=== PATIENT | female | born 1990 | race Caucasian/White ===

== ENCOUNTER 2024-05-20 11:45 | Emergency (ER) | payer BC, SELFPAY ==
[2024-05-20 11:51] VITALS: BP 110/74; PULSE 66; RESP 16; TEMP 36.6; O2SAT 99; BMI 27.3
--- NOTE | 2024-05-20 12:22 | CRLHL7_ITS ---
For Patients: As a result of the Century Cures Act, medical imaging exams and procedure reports are released immediately into your electronic medical record. You may view this report before your referring provider. If you have questions, please contact your health care provider. INDICATION: Heavy uterine bleeding COMPARISON: None. TECHNIQUE: Sonographic evaluation of the pelvis was performed utilizing velazco-scale and color Doppler imaging techniques. Transabdominal images were obtained. Transvaginal images were obtained to improve assessment of the adnexa and endometrium. FINDINGS: The uterus is anteverted/retroflexed and measures 9 x 4 x 4.5 centimeters. The endometrial stripe measures 11 mm. No uterine mass lesions are sonographically detected. The right ovary measures 3 x 4.4 x 3 cm with a right ovarian volume of 17.1 milliliters. Multiple right small ovarian follicles with a peripheral predominance. Vascular flow is detected in the right ovary. No suspicious right ovarian mass is identified. The left ovary measures 3.6 x 2.4 x 2.5 cm with a left ovarian volume of 11.6 milliliters. Multiple small left ovarian follicles with a peripheral predominance. Vascular flow is detected in the left ovary. No suspicious left ovarian mass is identified. Trace pelvic free fluid. IMPRESSION: 1. No acute sonographic findings. 2. Morphologic findings compatible with polycystic ovarian syndrome in the appropriate clinical setting. Dictated by Leodan Saba MD @ 05/20/2024 1:30:53 PM (Electronically Signed)
[2024-05-20 12:47] LABS: Basophils Absolute Auto 0.03 K/uL (0.00-0.30); Basophils Percent Auto 0.4 % (0.0-3.0); Eosinophils Absolute Auto 0.03 K/uL (0.00-0.50); Eosinophils Percent Auto 0.4 % (0.0-7.0); Hematocrit 44.4 % (33.0-51.0); Hemoglobin* 14.9 gm/dL (12.0-16.0); Immature Granulocytes Abs Auto 0.04 K/uL (0.00-0.30); Immature Granulocytes Pct Auto 0.5 %; Lymphocytes Absolute Auto 1.99 K/uL (0.90-2.90); Mean Corpuscular HGB Conc 34 gm/dL (32-36); Mean Corpuscular Hemoglobin 31 pg (26-34); Mean Corpuscular Volume 91 fL (80-100); Neutrophils Percent Auto 66.7 % (42.0-72.0); Platelet Count* 286 K/uL (140-440); RDW Coefficient of Variation % 12.6 % (11.5-15.5); Red Blood Count 4.89 m/uL (4.00-5.20); White Blood Count* 7.95 K/uL (4.50-11.00)
--- NOTE | 2024-05-20 12:50 | ED.FEMALEGU ---
HPI - Female Genitourinary General Date Seen: 05/20/24 Chief complaint: Vaginal Bleeding Stated complaint: heavy menstrual bleeding Time Seen by Provider: 05/20/24 11:52 Source: patient Mode of arrival: ambulatory Limitations: no limitations History of Present Illness HPI Narrative: Patient is a 34-year-old female presenting to the emergency department for abnormal uterine bleeding. She states she started her period yesterday and then this morning it has been getting worse. She was initially going through her 1 of her regular tampons every 10-20 minutes and is now gone up to the largest tampon still going through with every 30 minutes to an hour. She states the bleeding is notice much more when she stands up. She has but through her pains at work. Has not had any lightheadedness or dizziness. States she has heavy bleeding this several years ago when she was 15 but resolved on its own. She does have PCOS and has a history of an irregular. Until she had her sign a couple years ago now she states she has a. Roughly every 2 months. Do not have a period last month. Cannot say for certain she isn't currently . Is having some mild pelvic discomfort and cramping. Denies chest pain, shortness of breath, abdominal pain, lightheadedness, dizziness, weakness, numbness, fevers, chills. No other concerns noted at this time. Related Data Previous Rx's ?Medication ?Instructions ?Recorded norgestimate 0.25 mg-ethinyl See Rx Instructions .Route 05/20/24 estradiol 35 mcg tablet (Sprintec .COMPLEX #84 tabs (28)) Allergies Allergy/AdvReac Type Severity Reaction Status Date / Time No Known Drug Allergies Allergy Verified 05/20/24 11:56 Review of Systems Status of ROS: Reports: 10 or more systems reviewed and unremarkable except as noted in History and below Exam Narrative: Exam Narrative: Const: Well-nourished, Well-developed, in mild distress Eyes: PERRL, no conjunctival injection, and symmetrical lids HENT: Atraumatic external nose and ears. Moist mucous membranes. Neck: Symmetric, trachea midline, No thyromegaly. CVS: RRR, No murmurs or gallops. Peripheral pulses 2+ and equal in all extremities RESP: Unlabored respiratory effort. Clear to auscultation bilaterally. GI: Nontender/Nondistended, No rebound or guarding. MSK:Extremities w/o deformity, Normal Active ROM Skin: Warm, Dry. No rashes or lesions. Neuro: Normal Muscle tone, No focal neurological deficits. Psych: Awake, Alert, & Oriented x3. Appropriate mood and affect. Const: Vital Signs, click to edit/add: Vital Signs - 24 hr 05/20/24 11:51 Temperature 98 F Pulse Rate [Pulse Oximeter] 66 Respiratory Rate 16 Blood Pressure [Ri ght Upper Arm] 110/74 Pulse Oximetry 99 Oxygen Delivery Me thod Room Air Course Vital Signs Vital signs: Initial Vital Signs Temperature 98 F 05/20/24 11:51 Temperature Source Temporal Artery Scan 05/20/24 11:51 Pulse Rate 66 05/20/24 11:51 Respiratory Rate 16 05/20/24 11:51 Blood Pressure 110/74 05/20/24 11:51 Blood Pressure Mean 86 05/20/24 11:51 Blood Pressure Position Sitting 05/20/24 11:51 Pulse Oximetry 99 05/20/24 11:51 Oxygen Delivery Method Room Air 05/20/24 11:51 Vital Signs Temperature 98 F 05/20/24 11:51 Pulse Rate 66 05/20/24 11:51 Respiratory Rate 16 05/20/24 11:51 Blood Pressure 110/74 05/20/24 11:51 Pulse Oximetry 99 05/20/24 11:51 Oxygen Delivery Method Room Air 05/20/24 11:51 Temperature 98 F 05/20/24 11:51 Pulse Rate 66 05/20/24 11:51 Respiratory Rate 16 05/20/24 11:51 Blood Pressure 110/74 05/20/24 11:51 Pulse Oximetry 99 05/20/24 11:51 Oxygen Delivery Method Room Air 05/20/24 11:51 MDM - Female Genitourinary MDM Narrative Medical decision making narrative: Patient is a 34-year-old female presenting to emergency department for abnormal uterine bleeding. Will order an ultrasound to better evaluate this bleeding. Will check a BMP and CBC to make sure electrolytes and hemoglobin within normal limits. Will also check a test. Lab work shows no concerning abnormalities. Ultrasound shows no acute concerning abnormalities. I did do pelvic exam shows a moderate amount in the vaginal vault but otherwise normal external genitalia. She is stable and is doing well. I did speak to her OB providers out of the OB Gyne specialist and [place]. I spoke to the on-call provider, Dr. Olivera, who recommends Sprintec control to help with her bleeding and they will follow up with her outpatient. This was ordered and patient is agreeable to this plan. I was told that the patient calf 3 pills for the 1st 3 days followed by 2 pills for 3 days and then take 1 pill daily until finished. Lab Data Labs: Lab Results 05/20/24 Range/Units 12:33 WBC 7.95 (4.50-11.00) K/uL RBC 4.89 (4.00-5.20) m/uL Hgb 14.9 (12.0-16.0) gm/dL Hct 44.4 (33.0-51.0) % MCV 91 (80-100) fL MCH 31 (26-34) pg MCHC 34 (32-36) gm/dL RDW Coeff of Judi 12.6 (11.5-15.5) % Plt Count 286 (140-440) K/uL Neut % (Auto) 66.7 (42.0-72.0) % Lymph % (Auto) 25.0 (20-44) % [place] % (Auto) 7.0 (0.0-11.0) % Eos % (Auto) 0.4 (0.0-7.0) % Baso % (Auto) 0.4 (0.0-3.0) % Neut # (Auto) 5.30 (1.7-7.0) K/uL Lymph # (Auto) 1.99 (0.90-2.90) K/uL [place] # (Auto) 0.60 (0.00-0.90) K/UL Eos # (Auto) 0.03 (0.00-0.50) K/uL Baso # (Auto) 0.03 (0.00-0.30) K/uL Abs Immat Gran (auto) 0.04 (0.00-0.30) K/uL Imm/Tot Granulo (auto) 0.5 % Sodium 140 (135-149) mmol/L Potassium 4.3 (3.6-5.1) mmol/L Chloride 105 (96-114) mmol/L Carbon Dioxide 26 (20-32) mmol/L Anion Gap 9 (7-15) mEq/L BUN 10 (5-24) mg/dL Creatinine 0.6 (0.5-1.5) mg/dL Estimated Creat Clear 102.52 Estimated GFR 119 ml/min Glucose 93 (60-115) mg/dL Calcium 9.2 (8.4-10.6) mg/dL HCG, Qual Negative (Negative) Imaging Data Pelvic ultrasound: Attestation: I have reviewed the pertinent imaging results. Radiologist's impression: 1. No acute sonographic findings. 2. Morphologic findings compatible with polycystic ovarian syndrome in the appropriate clinical setting. Dictated by Leodan Saba MD @ 05/20/2024 1:30:53 PM Discharge Plan Discharge Clinical Impression: Dysfunctional uterine bleeding Patient Disposition: Home, Self-Care Condition: Stable Instructions: Abnormal (Dysfunctional) Uterine Bleeding (ED) Additional Instructions: Take the medication prescribed as directed. Start by taking 3 pills a day for 3 days followed by 2 pills a day for 3 days and then take 1 pill daily. You should follow-up with the OB Gyne specialist when you are able to. They recommend repeat ultrasound. Prescriptions: New norgestimate-ethinyl estradiol [Sprintec (28)] 0.25-35 mg-mcg tablet See Rx Instructions .ROUTE .COMPLEX Qty: 84 0RF Rx Instructions: Take 3 pills daily for 3 days followed by 2 pills daily for 3 days followed by 1 pill daily until empty Follow Up/Referrals: Provider,Not a Local [Primary Care Provider] - Stand Alone Forms: [employer] Info Instructions
--- OUTSIDE RECORDS SUMMARY | 2024-05-20 12:56 | XMS_ITS | Encounter Summary ---
Author Organization [facility] Address [address] [place] [id number] Care Team Providers Care Golf Technician Name Role Phone Chrystal Main PA-C Primary Care Pro vider Chrystal Main PA-C Unavailable Esther Zambrano PA-C Primary Care Provider [phone] Esther Zambrano PA-C Unavailable [facility] Unavail able [facility] Primary Care Provider Encounter Details Date Type Department Care Team (Late st Contact Info) Description 01/12/2016 MyC Medical Advice [facility] [address] [place] [address] Chrystal Main PA-C [facility] [address] [facility] [place] [address] Social History Tobacco Use Types Packs/Day Years Used Date Smoking Tobacco: Former Cigarettes 0.1 10.2 S tarted: 02/21/2014 Smokeless Tobacco: Never Comments:1 pack q2wks Alcohol Use Standard Drinks/Week Comments Yes 0.8 (1 standard drink = 0.6 oz p ure alcohol) Comments No Sex and Gender Information Value Date Recorded Sex Assigned at Female 04/19/2022 3:08 PM PRODUCT DEVELOPMENT CARPENTER Legal Sex Female 2:58 AM PRODUCT DEVELOPMENT CARPENTER Gender Identity Female 04/19/2022 3:08 PM PRODUCT DEVELOPMENT CARPENTER Sexual Orientation Straight 04/19/2022 3: 08 PM PRODUCT DEVELOPMENT CARPENTER 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 Not on file Not on fi le documented as of this encounter Plan of Treatment Not on file documented as of this encounter Visit Diagnoses Not on filedocumented in this encounter Care Teams Golf Technician Relationship Specialty Start Date End Date Chrystal Main PA-C PCP - General Family Practice 01/08/16 03/01/23 Esther Zambrano PA-C [facility] [address] [facility] [place] [address] PCP - General Family Medicine 03/02/23 11/05/23 [facility] [address] [place] [address] PCP - General 11/06/23 Chrystal Main PA-C [facility] [address] [facility] [place] [address] Assigned PCP 03/11/17 03/06/20 Esther Zambrano PA-C [address] [facility] [address] [place] [address] Assigned PCP 03/15/23 01/11/24 [facility] [address] [place] [address] Assigned PCP 01/12/24 documented as of this encounter
--- OUTSIDE RECORDS SUMMARY | 2024-05-20 12:56 | XMS_ITS | Clinical Summary ---
Author Organization [facility] Address [address] [place] [address] Care Team Providers Care Machine Pecan Picker Name Role Phone [facility] Unavail able [facility] Primary Care Provider Allergies No known active allergies Medications ibuprofen (ADVIL/MOTRIN) 800 MG tabletIndication s:Indication for care or intervention in labor or delivery Take 1 tablet (800 mg) by mouth every 6 hours as needed for other (cramping) 15 tablet 3 Active Additional Information Patient not taking.Reported on 03/02/2023 triamcinolone (KENALOG) 0.1 % external creamIndications :Labial irritation Apply topically daily To labia for irritation 45 g 1 4 Active nystatin (MYCOSTATIN) 153271 UNIT/GM external creamIndications :Intertrigo,Labi al irritation Apply topically 2 times daily Under both breasts and to labia for irritation 60 g 1 4 Active Active Problems Problem Noted Date Diagnosed Date PCOS (polycystic ovarian syndrome) 03/02/2023 Indication for care or intervention in labor or delivery 04/20/2022 ACP (advance care planning) 03/02/2017 Overview (03/02/2017): Advance Care Planning 03/02/2017: ACP Review of Chart / Resources Provided: Reviewed chart for advance care plan. Seda Bob has no plan or code status on file. Discussed available resources and provided with information. 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 Maternal Grandfather Depression Maternal Grandmother Depression Mother Uterine Cancer Other dad's grandmothe r Diabetes Paternal Grandfather Diabetes Paternal Grandmother Crohn's Disease Sister 1 Breast Cancer No family hx of Cancer - colorectal No family hx of Hypertension No family hx of Relation Status Comments Cousin Alive Father Alive Maternal Aunt Alive Maternal Grandfather Maternal Grandmother Mother Alive Other Paternal Grandfather Paternal Grandmother Sister 1 Alive Sister 2 Alive Social History Tobacco Use Types Packs/Day Years Used Date Smoking Tobacco: Former Cigarettes 0.1 10.2 S tarted: 02/21/2014 Smokeless Tobacco: Never Tobacco Cessation:Counseling Given: Not Answered Alcohol Use Standard Drinks/Week Comments Not Currently 0 (1 standard drink = 0.6 oz pur e alcohol) rare Social Connection and Isolat ion Panel [NHANES] Answer Date Recorded In a typical week, how many times do you talk on the phone with family, friends, or neighbors? More than three times a week 03/02/2023 How often do you get togethe r with friends or relatives? Twice a week 03/02/2023 How often do you attend chur or restorationist services? 1 to 4 times per year 03/02/2023 Do you belong to any clubs o r organizations such as baptist groups, unions, fraternal or athletic groups, or school groups? No 03/02/2023 How often do you attend meet ings of the clubs or organizations you belong to? Patient declined 03/02/2023 Are you , , di vorced, , never , or living with a partner? 03/02/2023 AUDIT-C Answer Date Recorded Q1: How often do you have a drink containing alcohol? Never 03/02/2023 Q2: How many drinks containi ng alcohol do you have on a typical day when you are drinking? Patient does not drink Q3: How often do you have si x or more drinks on one occasion? Never 03/02/2023 PHQ-2 Answer Date Recorded PHQ-2 Score 0 03/02/2023 [facility] - Occupational Stress Questionnaire Answer Date Recorded Do you feel stress - tense, restless, nervous, or anxious, or unable to sleep at night because your mind is troubled all the time - these days? Not at all 03/02/2023 Exercise Vital Sign Answer Date Recorde d On average, how many days pe r week do you engage in moderate to strenuous exercise (like a brisk walk)? 4 days Minutes of Exercise per Session Not on file 03/02/2023 Driver Depression Scale Answer Date Recorded Last EPDS Total Score Not on file 04/22/2022 The thought of harming myself has occurred to me . Never 04/22/2022 Adolescent Education Answer Date Record ed Getting School Help Needed Not on file 12/03 Food Insecurity Answer Date Recorded Within the past 12 months, d id you worry that your food would run out before you got money to buy more? No 03/02/2023 Within the past 12 months, d id the food you bought just not last and you didn t have money to get more? No 03/02/2023 Housing Stability Answer Date Recorded Do you have housing? (Housin g is defined as stable permanent housing and does not include staying ouside in a car, in a tent, in an abandoned building, in an overnight senior living, or couch-surfing.) Yes 03/02/2023 Are you worried about losing your housing? No 03/02/2023 Financial Resource Strain Answer Date R ecorded Within the past 12 months, h ave you or your family members you live with been unable to get utilities (heat, electricity) when it was really needed? No 03/02/2023 Transportation Needs Answer Date Record ed Within the past 12 months, h as lack of transportation kept you from medical appointments, getting your medicines, non-medical meetings or appointments, work, or from getting things that you need? No 03/02/2023 Interpersonal Safety Answer Date Record ed Do you feel physically and e motionally safe where you currently live? Yes 03/02/2023 Within the past 12 months, h ave you been hit, slapped, kicked or otherwise physically hurt by someone? No 03/02/2023 Within the past 12 months, h ave you been humiliated or emotionally abused in other ways by your partner or ex-partner? No 03/02/2023 Comments No Sex and Gender Information Value Date Recorded Sex Assigned at Female 04/19/2022 3:08 PM TECHNICAL RECRUITER Legal Sex Female 2:58 AM TECHNICAL RECRUITER Gender Identity Female 04/19/2022 3:08 PM TECHNICAL RECRUITER Sexual Orientation Straight 04/19/2022 3: 08 PM TECHNICAL RECRUITER Occupation Industry Job Start Date Job End Date [employer] Not on file Not on file Not on fi le Last Filed Vital Signs Vital Sign Reading Time Taken Comments Blood Pressure 117/70 03/02/2023 1:32 PM TECHNICAL RECRUITER Pulse 55 03/02/2023 1:32 PM TECHNICAL RECRUITER Temperature 36.4 C (97.6 F) 03/02/2023 1:32 PM TECHNICAL RECRUITER Respiratory Rate 12 03/02/2023 1:32 PM TECHNICAL RECRUITER Oxygen Saturation 96% 03/02/2023 1:32 PM TECHNICAL RECRUITER Inhaled Oxygen Concentration - - Weight 66 kg (145 lb 9.6 oz) 03/02/2023 1:32 PM TECHNICAL RECRUITER Height 157.5 cm (5' 2) 03/02/2023 1:32 PM TECHNICAL RECRUITER Body Mass Index 26.63 03/02/2023 1:32 PM TECHNICAL RECRUITER Plan of Treatment Health Maintenance Due Date Last Done Comments ANNUAL REVIEW OF HM ORDERS 1988 HPV IMMUNIZATION (2 - 3-dose series) 06/03/2012 05/06/2012 COVID-19 Vaccine ( season) 2023 INFLUENZA VACCINE (#1) 2023 01/03/2022, 2015 PHQ-2 (once per calendar year) 2024 03/02/2023, 03/02/2017 YEARLY PREVENTIVE VISIT 03/02/2024 03/02/19 24, 03/02/2017, 01/17/2016, Additional history exists DIABETES SCREENING 03/02/2026 03/02/2023, 0 03/02/2023, 01/17/2016 ADVANCE CARE PLANNING 03/02/2028 03/02/2023 HPV TEST 03/02/2028 03/02/2023, 01/17/2016 PAP 03/02/2028 03/02/2023, 02/19, 01/17/2016, Additional history exists DTAP/TDAP/TD IMMUNIZATION (5 - Td or Tdap) 02/02/2032 02/01/2022, 12/19/2011, 08/28/2003, Additional history exists ZOSTER IMMUNIZATION (1 of 2) 01/17/2038 HIV SCREENING Completed 09/05/2021, 02/19, 01/31/2013 HEPATITIS C SCREENING Completed 03/02/2023 HEPATITIS B IMMUNIZATION Discontinued MENINGITIS IMMUNIZATION Aged Out No l onger eligible based on patient's age to complete this topic Pneumococcal Vaccine: Pediatrics (0 to 5 Years) and At-Risk Patients (6 to 49 Years) Aged Out No longer eligible based on patient's age to complete this topic Procedures Procedure Name Priority Date/Time Associated Diagnosis Comments HEMOGLOBIN A1C Routine 03/02/2023 2:08 PM TECHNICAL RECRUITER Routine general medical examination at a health care facility HEPATITIS C SCREEN REFLEX TO HCV RNA QUANT AND GENOTYPE Routine 03/02/2023 2:08 PM TECHNICAL RECRUITER Need for hepatitis C screening test GYNECOLOGIC CYTOLOGY Routine 03/02/2023 1:53 PM TECHNICAL RECRUITER Cervical cancer screening HPV HIGH RISK TYPES DNA CERVICAL Routine 03/02/2023 1:53 PM TECHNICAL RECRUITER Cervical cancer screening HIV 1&2 ANTIBODY (EXTERNAL RESULT) Routine 09/05/2021 12:00 PM CDT from Last 3 Months or Most Recently Relevant to Health Maintenance Results * Hepatitis C Screen Reflex to HCV RNA Quant and Genotype (03/02/2023 2:08 PM TECHNICAL RECRUITER) Pathologist [facility] Hepatitis C Antibody Nonreactive Nonreactive 03/03/2023 9:51 AM TECHNICAL RECRUITER [facility] Comment:A nonreactive screen ing test result does not exclude the possibility of exposure to or infection with HCV. Nonreactive screening test results in individuals with prior exposure to HCV may be due to antibody levels below the limit of detection of this assay or lack of reactivity to the HCV antigens used in this assay. Patients with recent HCV infections (<3 months from time of exposure) may have false- negative HCV antibody results due to the time needed for seroconversion (average of 8 to 9 weeks). Blood BLOOD SPECIMEN / Unknown Venipuncture / Unknown 03/02/2023 2:08 PM TECHNICAL RECRUITER 03/02/2023 2:08 PM TECHNICAL RECRUITER Esther Zambrano PA-C LAB - BLOOD ORDERABLES Fin al Result [facility] [address], [address] [place] [address], [facility] [phone] * Hemoglobin A1c (03/02/2023 2:08 PM TECHNICAL RECRUITER) [facility] Hemoglobin A1C 5.1 0.0 - 5.6 % 03/02/2023 2:14 PM TECHNICAL RECRUITER [facility] Comment: Normal <5.7% Prediabetes 5.7-6.4% Diabetes 6.5% or higher Note: Adopted from ADA consensus guidelines. Blood BLOOD SPECIMEN / Unknown Venipuncture / Unknown 03/02/2023 2:08 PM TECHNICAL RECRUITER 03/02/2023 2:08 PM TECHNICAL RECRUITER Esther Zambrano PA-C LAB - BLOOD ORDERABLES Fin al Result [facility] [address] [place] [address] (no room number, 1st floor of clinic) [place] [address], [facility] [phone] * Pap Screen with HPV - recommended age 30 - 65 years (03/02/2023 1:53 PM TECHNICAL RECRUITER) Interpretation Negative for Intraepithelial Lesion or Malignancy (NILM) 03/07/2023 9:24 AM TECHNICAL RECRUITER [facility] Comment Papanicolaou Test Limitations: Cervical cytology is a screening test with limited sensitivity, and regular screening is critical for cancer prevention. Pap tests are primarily effective for the diagnosis/prevent ion of squamous cell carcinoma, not adenocarcinoma or other cancers. 03/07/2023 9:24 AM TECHNICAL RECRUITER [facility] Specimen Adequacy Satisfactory for evaluation, endocervical/soliman sformation zone component absent 03/07/2023 9:24 AM TECHNICAL RECRUITER [facility] Clinical Information none 03/07/2023 9:24 AM TECHNICAL RECRUITER [facility] Reflex Testing Yes regardless of result 03/07/2023 9:24 AM TECHNICAL RECRUITER [facility] Previous Abnormal? No 03/07/2023 9:24 AM TECHNICAL RECRUITER [facility] Performing Labs The technical component of this testing was completed at [facility] 03/07/2023 9:24 AM TECHNICAL RECRUITER [facility] Brushing CERVIX UTERI STRUCTURE / Unknown 03/02/2023 1:53 PM TECHNICAL RECRUITER 03/02/2023 2:28 PM TECHNICAL RECRUITER us Esther VILLAGOMEZ Final Resu lt [facility] Specialty Lab [address] [facility] [address] [facility] [place] [address], [facility] [phone] * HPV High Risk Types DNA Cervical (03/02/2023 1:53 PM TECHNICAL RECRUITER) Other HR HPV Negative Negative 03/09/2023 7:13 AM TECHNICAL RECRUITER [facility] HPV16 DNA Negative Negative 03/09/2023 7:13 AM TECHNICAL RECRUITER [facility] HPV18 DNA Negative Negative 03/09/2023 7:13 AM TECHNICAL RECRUITER [facility] FINAL DIAGNOSIS This patient's sample is negative for HPV DNA. This test was developed and its performance characteristics determined by the [facility]. It has not been cleared or approved by the FDA. The laboratory is regulated under CLIA as qualified to perform high-complexity testing. This test is used for clinical purposes. It should not be regarded as investigational or for research. METHODOLOGY: The Cristina Kiera [id number] system uses automated extraction, simultaneous amplification of HPV (L1 region) and beta-globin, followed by real time detection of fluorescent labeled HPV and beta globin using specific oligonucleotide probes. The test specifically identifies types HPV 16 DNA and HPV 18 DNA while concurrently detecting the rest of the high risk types (31, 33, 35, 39, 45, 51, 52, 56, 58, 59, 66 or 68). COMMENTS: This test is not intended for use as a screening device for woman under age 30 with normal cervical cytology. Results should be correlated with cytologic and histologic findings. Close clinical followup is recommended. 03/09/2023 7:13 AM TECHNICAL RECRUITER [facility] Brushing CERVIX UTERI STRUCTURE / Unknown Non-blood Collection / Unknown 03/02/2023 1:53 PM TECHNICAL RECRUITER 03/08/2023 8:24 AM TECHNICAL RECRUITER Esther Zambrano PA-C LAB - BLOOD ORDERABLES Fin al Result [facility] [address] [facility], [address] [id number] [phone] * HIV-1 Antibody (External Result) (09/05/2021 12:00 PM CDT) HIV 1&2 Antibody (External) Negative Nonreactive EXTERNAL LAB 09/05/2021 12:0 0 PM CDT us Patient Reported LAB - HIM EXTERNAL RESULT Final Result EXTERNAL LAB External Lab from Last 3 Months or Most Recently Relevant to Health Maintenance [place] [address] [place] [address] [facility] [employer] Advance Directives For more information, please contact: [phone] * Full Code (Latest Code Status on File) Date Activated Date Inactivated Comments 04/21/2022 5:00 AM 04/23/2022 6:42 PM All basic and advanced life-sustaining interventions are performed as appropriate Question Answer Comments Code status determined by: Discussion with nnamdie nt/ legal decision maker * Full Code Date Activated Date Inactivated Comments 04/20/2022 12:34 PM 04/21/2022 4:12 AM All basic and advanced life-sustaining interventions are performed as appropriate Question Answer Comments Code status determined by: Discussion with finn nt/ legal decision maker Care Teams Machine Pecan Picker Relationship Specialty Start Date End Date [facility] [id number] [place] [id number] PCP - General 11/06/23 [facility] [address] [place] [address] Assigned PCP 01/12/24
[2024-05-20 12:58] LABS: Chloride* 105 mmol/L (96-114); Potassium* 4.3 mmol/L (3.6-5.1); Sodium* 140 mmol/L (135-149)
[2024-05-20 13:01] LABS: Anion Gap 9 mEq/L (7-15); Blood Urea Nitrogen* 10 mg/dL (5-24); Calcium* 9.2 mg/dL (8.4-10.6); Carbon Dioxide* 26 mmol/L (20-32); Creatinine* 0.6 mg/dL (0.5-1.5); Est. Creatinine Clearance* 102.52; Estimated Glomerular Filt Rate 119 ml/min; Glucose* 93 mg/dL (60-115)
[2024-05-20 13:10] LABS: Slide Review Reflex No
[2024-05-20 13:12] LABS: HCG Qualitative Serum* Negative (Negative)
== END 2024-05-20 14:18 | disposition home or self-care (01) ==
PROVIDERS: Emergency Provider Student in an Organized Health Care Education/Training Program
DX: N93.8 Other specified abnormal uterine and vaginal bleeding (principal)
CPT/HCPCS: 36415; 76830; 76856; 80048; 84703; 85025; 99284